=== PATIENT | male | born 1985 | race Caucasian/White ===

== ENCOUNTER 2019-07-26 07:14 | Emergency (ER) | payer MEDICAID, SELFPAY ==
[~2019-07-26] VITALS: Ht 165.1 cm; Wt 59.0 kg
[2019-07-26 07:44] VITALS: Ht 165.1 cm; Wt 59.0 kg
[2019-07-26 09:46] VITALS: BP 113/63
== END 2019-07-26 09:46 | disposition home or self-care (01) ==
LOC: ED 07:14
DX: Z20.828 Contact with and (suspected) exposure to other viral communicable diseases (principal)
CPT/HCPCS: Q0092

== ENCOUNTER 2019-08-02 13:35 | Emergency (ER) | payer SELFPAY ==
[~2019-08-02] VITALS: Ht 160 cm; Wt 54.4 kg
[2019-08-02 13:37] VITALS: Ht 160 cm; Wt 54.4 kg
[2019-08-02 14:51] VITALS: BP 118/78
== END 2019-08-02 14:51 | disposition home or self-care (01) ==
LOC: ED 13:35
DX: U07.1 COVID-19 (principal)
CPT/HCPCS: Q0092